=== PATIENT | female | born 1965 | race Caucasian/White ===

== ENCOUNTER 2018-01-01 11:31 | Emergency (ER) | payer OTHER ==
[2018-01-01 11:46] VITALS: RESP 18; BMI 27.4
--- NOTE | 2018-01-01 12:04 | ED PDOC ---
Arrival/HPI - General Chief Complaint: Upper Extremity Problem/Injury Time Seen by Provider: 01/01/18 11:49 Historian: Patient - History of Present Illness Narrative History of Present Illness (Text): 01/01/18 11:5452 52y/o F with no significant PMH presents to the emergency department complaining of right arm pain s/p work injury. 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 She was concerned as the day progressed and went home, got dressed, and arrived to the ER immediately afterwards. Patient denies any other complaints at this time. No PMD Time/Duration: Prior to Arrival Symptom Onset: Sudden Symptom Course: Unchanged Quality: Aching Severity Level: Moderate Activities at Onset: Rest Context: Work Past Medical History - Provider Review Nursing Documentation Reviewed: Yes - Travel History Have you recently traveled outside [place] w/in the past 3 mons?: No - Infectious Disease Hx of Infectious Diseases: None - Cardiac Hx Hypertension: Yes - Psychiatric Hx Substance Use: No - Anesthesia Hx Anesthesia: Yes Hx Anesthesia Reactions: No Hx Malignant Hyperthermia: No Family/Social History - Physician Review Nursing Documentation Reviewed: Yes Family/Social History: No Known Family HX Smoking Status: Never Smoked Hx Alcohol Use: No Hx Substance Use: No Allergies/Home Meds Allergies/Adverse Reactions: Allergies No Known Allergies Allergy (Verified 01/01/18 11:45) Review of Systems - Physician Review All systems were reviewed & negative as marked: Yes - Review of Systems Cardiovascular: absent: Chest Pain Musculoskeletal: Other (right arm pain s/p injury) Physical Exam Vital Signs Reviewed: Yes Vital Signs Temp Pulse Resp BP Pulse Ox 01/01/18 11:45 98.6 F 70 18 165/69 H 98 Temperature: Afebrile Blood Pressure: Hypertensive Pulse: Regular Respiratory Rate: Normal Appearance: Positive for: Well-Appearing, Non-Toxic, Comfortable Pain Distress: None Mental Status: Positive for: Alert and Oriented X 3 - Systems Exam Head: Present: Atraumatic, Normocephalic Pupils: Present: PERRL Extroacular Muscles: Present: EOMI Conjunctiva: Present: Normal Mouth: Present: Moist Mucous Membranes Neck: Present: Normal Range of Motion Respiratory/Chest: Present: Clear to Auscultation, Good Air Exchange. No: Resp iratory Distress, Accessory Muscle Use Cardiovascular: Present: Regular Rate and Rhythm, Normal S1, S2. No: Murmurs Abdomen: No: Tenderness, Distention, Peritoneal Signs Back: Present: Normal Inspection Upper Extremity: Present: NORMAL PULSES (radial pulses are strong), Tenderness (tenderness to palpation to the right shoulder/arm), Swelling (mild swelling to medial aspect of the surface of glenohumeral joint), Capillary Refill < 2s, Other (unable to ABduct above 90 degrees angle). No: Edema, Erythema, Deformity Lower Extremity: Present: Normal Inspection. No: Edema Neurological: Present: GCS=15, CN II-XII Intact, Speech Normal Skin: Present: Warm, Dry, Normal Color. No: Rashes Psychiatric: Present: Alert, Oriented x 3, Normal Insight, Normal Concentration Medical Decision Making ED Course and Treatment: 01/01/18 11:58 Impression: 52 year old female with right arm pain s/p work injury. Physical exam shows tenderness to palpation to right arm/shoulder, no erythema noted, mild swelling noted to medial aspect of the surface of glenohumeral joint, unable to abduct above 90 degrees angle. Differential Diagnoses Includes But is Not Limited To: Glenohumeral joint separation Humeral fracture Rotator Cuff Tear Anterior dislocation Plan: -- Right Shoulder X-Ray -- POC Urine Test -- Toradol -- Reassess and disposition Progress Notes: 01/01/18 13:20 XR shoulder unremarkable for fracture or dislocation of the shoulder. Patient reassessed and feels much better. She will follow up with her PCP with orthopedic follow up provided as needed. Patient advised to continue supportive therapy at home in conjunction with his sling. She is stable for discharge. - RAD Interpretation Narrative RAD Interpretations (Text): 01/01/2018 12:48 Right Shoulder X-Ray IMPRESSION: Normal radiographs of the right shoulder. Dictator: Yovani Parikh MD Radiology Orders: 01/01/18 11:58 SHOULDER RIGHT [RAD] Stat - Medication Orders Current Medication Orders: Discontinued Medications Ketorolac Tromethamine (Toradol) 60 mg IM STAT STA Stop: 01/01/18 11:59 - Scribe Statement The provider has reviewed the documentation as recorded by the Maciel Osman Provider Scribe Attestation: All medical record entries made by the Scribe were at my direction and personally dictated by me. I have reviewed the chart and agree that the record accurately reflects my personal performance of the history, physical exam, medical decision making, and the department course for this patient. I have also personally directed, reviewed, and agree with the discharge instructions and disposition. Disposition/Present on Arrival - Present on Arrival Any Indicators Present on Arrival: No History of DVT/PE: No History of Uncontrolled Diabetes: No Urinary Catheter: No History of Decub. Ulcer: No History Surgical Site Infection Following: None - Disposition Have Diagnosis and Disposition been Completed?: Yes Diagnosis: Shoulder sprain Disposition: HOME/ ROUTINE Disposition Time: 12:55 Patient Plan: Discharge Condition: STABLE Discharge Instructions (ExitCare): Shoulder Sprain (DC), Shoulder Instability (DC) Prescriptions: Cyclobenzaprine [Flexeril] 5 mg PO PRN PRN #6 tab PRN Reason: Muscle Spasm Ibuprofen [Motrin Tab] 600 mg PO Q6H PRN 6 Days #24 tab PRN Reason: Pain, Moderate (4-7) Referrals: Yumiko Brooke MD [Medical Doctor] - Follow up with primary [facility] [place] - Follow up with primary Tyrel Hernandez MD [Staff Provider] - Follow up with primary Forms: [facility] (Eritrean), WORK NOTE
--- NOTE | 2018-01-01 12:53 | RAD ---
Date of service: 01/01/2018 PROCEDURE: Radiographs of the Right Shoulder HISTORY: unable to abduct shoulder s/p work related injury COMPARISON: No prior. FINDINGS: BONES: Normal. No fracture. JOINTS: Normal. Glenohumeral and acromioclavicular joints preserved. No osteoarthritis. SOFT TISSUES: Normal. OTHER FINDINGS: None. IMPRESSION: Normal radiographs of the right shoulder.
[2018-01-01 13:16] VITALS: BP 151/64; PULSE 76; TEMP 98.5; O2SAT 99
== END 2018-01-01 13:23 | disposition home or self-care (01) ==
LOC: ED 11:31
DX: S43.401A Unspecified sprain of right shoulder joint, initial encounter (principal); X58.XXXA Exposure to other specified factors, initial encounter; Y99.0 Civilian activity done for income or pay; I10 Essential (primary) hypertension
CPT/HCPCS: 73030; 96372; 99284; J1885

== ENCOUNTER 2018-06-03 10:51 | Emergency (ER) | payer OTHER ==
[2018-06-03 10:51] VITALS: BMI 27.4
[2018-06-03 11:01] VITALS: RESP 18
[2018-06-03] MEDS ORDERED: Benzocaine/Menthol (Cepacol) Lozenge MT STA (11:26)
[2018-06-03 11:52] LABS: INFLUENZA A B NEGATIVE FOR FLU A/B (NEGATIVE)
[2018-06-03] MEDS ORDERED: Amoxicillin-Clav 875-125 mg Tab PO STA (13:34)
[2018-06-03 13:56] VITALS: BP 110/64; O2SAT 98
[2018-06-03 13:59] VITALS: PULSE 91; TEMP 97.7
--- NOTE | 2018-06-03 14:50 | RAD ---
Date of service: 06/03/2018 HISTORY: Cough. COMPARISON: No prior. TECHNIQUE: Chest PA and lateral FINDINGS: LUNGS: No active pulmonary disease. PLEURA: No significant pleural effusion identified. No pneumothorax apparent. CARDIOVASCULAR: No aortic atherosclerotic calcification present. No radiographic findings to suggest acute or significant cardiovascular disease. OSSEOUS STRUCTURES: No significant abnormalities. VISUALIZED UPPER ABDOMEN: Normal. OTHER FINDINGS: None. IMPRESSION: No active disease.
--- NOTE | 2018-06-03 20:02 | ED PDOC ---
Arrival/HPI - General Chief Complaint: ENT Problem Time Seen by Provider: 06/03/18 10:52 - History of Present Illness Narrative History of Present Illness (Text): 53 y/o female with PMH of HTN presents to the ED c/o cough and sore throat x 5 days. Sore throat is worse when she swallows, and cough is productive of yellow sputum. Has not taken any medication for pain. Also c/o swelling around left eye. No recent travel or sick contacts. Denies fevers, chills, SOB, chest pain, eye pain, visual changes, dizziness, headache, palpitations, back pain, neck pain/stiffness, or any other associated symptoms. Past Medical History - Infectious Disease Hx of Infectious Diseases: None - Cardiac Hx Hypertension: Yes - Psychiatric Hx Substance Use: No - Anesthesia Hx Anesthesia: Yes Hx Anesthesia Reactions: No Hx Malignant Hyperthermia: No Family/Social History - Physician Review Nursing Documentation Reviewed: Yes Family/Social History: No Known Family HX Smoking Status: Never Smoked Hx Alcohol Use: No Hx Substance Use: No Allergies/Home Meds Allergies/Adverse Reactions: Allergies No Known Allergies Allergy (Verified 06/03/18 11:01) Review of Systems - Review of Systems Constitutional: Normal. absent: Fevers Eyes: Normal. absent: Vision Changes, Photophobia, Eye Pain ENT: Sore Throat, Sinus Congestion Respiratory: Cough, Sputum. absent: SOB Cardiovascular: Normal. absent: Chest Pain, Palpitations Gastrointestinal: Normal. absent: Abdominal Pain, Stool Changes, Nausea, Vomiting, Appetite Changes Genitourinary Female: Normal. absent: Dysuria, Frequency Musculoskeletal: Normal. absent: Arthralgias, Back Pain, Neck Pain Skin: Normal. absent: Rash Neurological: Normal. absent: Headache, Dizziness Endocrine: Normal Hemo/Lymphatic: Normal Psychiatric: Normal Physical Exam Vital Signs Reviewed: Yes Vital Signs Temp Pulse Resp BP Pulse Ox 06/03/18 13:58 97.7 F 91 H 18 06/03/18 13:55 97.9 F 97 H 18 110/64 98 06/03/18 10:59 98.2 F 63 18 143/85 97 Temperature: Afebrile Blood Pressure: Normal Pulse: Regular Respiratory Rate: Normal Appearance: Positive for: Well-Appearing, Non-Toxic, Comfortable Pain Distress: None Mental Status: Positive for: Alert and Oriented X 3 - Systems Exam Head: Present: Atraumatic, Normocephalic, Swelling (mild swelling to skin around left eye; no proptosis, periorbital erythema or warmth) Pupils: Present: PERRL Extroacular Muscles: Present: EOMI (without pain) Conjunctiva: Present: Normal. No: Injected Ears: Present: Normal, NORMAL TM, Normal Canal Mouth: Present: Moist Mucous Membranes Pharnyx: Present: ERYTHEMA (bilateral tonsils), TONSILS ENLARGED (bilaterally). No: EXUDATE Nose (External): Present: Atraumatic Nose (Internal): Present: Normal Inspection Neck: Present: Normal Range of Motion. No: Meningeal Signs Respiratory/Chest: Present: Clear to Auscultation, Good Air Exchange. No: Respiratory Distress, Accessory Muscle Use Cardiovascular: Present: Regular Rate and Rhythm, Normal S1, S2, Peripheal Pulses Present Abdomen: Present: Normal Bowel Sounds. No: Tenderness, Distention, Peritoneal Signs, Rebound, Guarding Back: Present: Normal Inspection. No: CVA Tenderness, Midline Tenderness, Paraspinal Tenderness Upper Extremity: Present: Normal Inspection, Normal ROM, NORMAL PULSES, Neurovascularly Intact, Capillary Refill < 2s. No: Cyanosis, Edema, Temperature Abnormalties Lower Extremity: Present: Normal Inspection, NORMAL PULSES, Normal ROM, Neurovascularly Intact, Capillary Refill < 2 s. No: Edema, Temperature Abnormalties Neurological: Present: GCS=15, CN II-XII Intact, Speech Normal, Motor Func Grossly Intact, Normal Sensory Function, Gait Normal Skin: Present: Warm, Dry, Normal Color. No: Rashes Lymphatic: Present: Cervical Adenopathy (right sided ) Psychiatric: Present: Alert, Oriented x 3, Normal Insight, Normal Concentration, Normal Affect, Normal Mood Medical Decision Making ED Course and Treatment: Initial Plan: * Rapid Flu * Rapid Strep * CXR * Cepacol Rapid strep negative Rapid flu negative CXR shows no active disease Patient reports improvement in symptoms with medication. Will treat with Augmentin secondary to tonsillitis, lymphadenopathy, and periorbital swelling. Advised PMD followup. Diagnostic testing results and plan of care discussed with patient. Strict instructions given regarding prescription use, importance of followup, and signs/symptoms to return to ER including or any other new/worsening symptoms. Pt verbalized understanding of discussion. Patient is A&Ox3, ambluating with steady gait, with vital signs stable for discharge. - RAD Interpretation Narrative RAD Interpretations (Text): CXR: FINDINGS: LUNGS: No active pulmonary disease. PLEURA: No significant pleural effusion identified. No pneumothorax apparent. CARDIOVASCULAR: No aortic atherosclerotic calcification present. No radiographic findings to suggest acute or significant cardiovascular disease. OSSEOUS STRUCTURES: No significant abnormalities. VISUALIZED UPPER ABDOMEN: Normal. OTHER FINDINGS: None. IMPRESSION: No active disease. Radiology Orders: 06/03/18 11:26 CHEST TWO VIEWS (PA/LAT) [RAD] Stat - Medication Orders Current Medication Orders: Discontinued Medications Amoxicillin/Clavulanate Potassium (Augmentin 875 Mg-125 Mg Tab) 1 tab PO STAT STA; Protocol Stop: 06/03/18 13:35 Last Admin: 06/03/18 14:00 Dose: Not Given Non-Admin Reason: pt left with instructions to go to pharmacy . Benzocaine/Menthol (Cepacol Sore Throat) 1 bola MT STAT STA Stop: 06/03/18 11:27 Last Admin: 06/03/18 12:18 Dose: 1 bola Disposition/Present on Arrival - Present on Arrival Any Indicators Present on Arrival: No History of DVT/PE: No History of Uncontrolled Diabetes: No Urinary Catheter: No History of Decub. Ulcer: No History Surgical Site Infection Following: None - Disposition Have Diagnosis and Disposition been Completed?: Yes Diagnosis: Lower respiratory infection, Tonsillitis Disposition: HOME/ ROUTINE Disposition Time: 13:45 Condition: STABLE Discharge Instructions (ExitCare): Acute Bronchitis, Adult (DC), Sore Throat, Adult (DC) Additional Instructions: Augmentin every 12 hours for 10 days Tessalon perles every 8 hours as needed for cough Increase fluids Rest, no strenuous activity Followup with primary doctor within 2 days Return to ER with any new/worsening symptoms Prescriptions: Amoxicillin/Clavulanate [Augmentin 875 MG-125 MG] 1 tab PO Q12 #20 tab Benzonatate [Tessalon Perle] 200 mg PO Q8H PRN #30 capsule PRN Reason: Cough Referrals: [facility] at [facility] [place] - Follow up with primary Yumiko Brooke MD [Medical Doctor] - Follow up with primary Forms: [facility] [employer] (Urdu), WORK NOTE
== END 2018-06-03 13:57 | disposition home or self-care (01) ==
LOC: ED 10:51
DX: J22 Unspecified acute lower respiratory infection (principal); J03.90 Acute tonsillitis, unspecified